=== PATIENT | female | born 1950 | race Caucasian/White ===

== ENCOUNTER → 2017-09-13 | Outpatient (CLI) | payer BC ==
--- NOTE | 2017-09-13 16:31 | PCVCIMAG ---
APPROVED REPORT Study performed: 09/13/2017 14:58:34 EXAM: Comprehensive 2D, Doppler, and color-flow Echocardiogram Patient Location: Echo lab Status: routine BSA: 1.98 2D Dimensions LVEF(%): 75.40 (>50%) IVSd: 11.74 (7-11mm)LVOT Diam: 19.73 (18-24mm) LVDd: 37.39 mm PWd: 10.44 (7-11mm)Ascending Ao: 36.40 (22-36mm) LVDs: 21.14 (25-40mm) Left Atrium: 31.88 (27-40mm) Aortic Root: 32.90 mm LV Single Plane 4CH: 73.84 % LV Single Plane 2CH: 56.49 %O[place]ira's LVEF: 65.17 % Biplane EF: 67.2 % Volumes Left Atrial Volume (Systole) Single Plane 4CH: 35.05 mLSingle Plane 2CH: 52.04 mL LA ESV Index: 25.00 mL/m2 Aortic Valve AoV Peak Marlon.: 1.86 m/s AO Peak Gr.: 13.84 mmHgLVOT Max P.00 mmHg AO Mean Gr.: 7.56 mmHgLVOT Mean P.64 mmHg AO V2 Mean: 1.32 m/sLVOT Max V: 1.15 m/s AO V2 VTI: 39.34 cm MITCHELL (VTI): 2.13 [id number] V1 VTI: 27.40 cm MITCHELL Vmax: 1.89 cm2 Mitral Valve E/A Ratio: 0.9 MV Decel. Time: 278.71 ms MV E Max Marlon.: 0.74 m/s MV A Marlon.: 0.82 m/s MV PHT: 80.83 ms IVRT: 124.57 ms TDI E/Lateral E': 12.33E/Medial E': 8.22 Medial E' Marlon.: 0.09 m/s Lateral E' Marlon.: 0.06 m/s Pulmonary Vein P Vein S: 0.67 m/sP Vein A: 0.29 m/s P Vein D: 0.41 m/sP Vein A Dur.: 90.0 msec P Vein S/D Ratio: 1.63 Tricuspid Valve TR Peak Marlon.: 2.41 m/s TR Peak Gr.: 23.30 mmHg Left Ventricle The left ventricle is normal size. There is normal LV segmental wall motion. There is normal left ventricular wall thickness. Left ventricular systolic function is normal. The left ventricular ejection fraction is within the normal range. LVEF is 65%. The left ventricular diastolic function is normal. Right Ventricle The right ventricle is normal size. The right ventricular systolic function is normal. Atria The left atrium size is normal. The right atrium size is normal. Aortic Valve Aortic valve is probably trileaflet. Aortic valve leaflets are mildly thickened. No aortic regurgitation is present. There minimal aortic valvular stenosis. Peak gradient is 14mmhg. Mean gradient of 8mmhg. Mitral Valve The mitral valve is normal in structure. There is no mitral valve regurgitation noted. No evidence of mitral valve stenosis. Tricuspid Valve The tricuspid valve is normal in structure. Trace tricuspid regurgitation. Pulmonary artery pressure is 31mmhg. Pulmonic Valve The pulmonary valve is normal in structure. There is no pulmonic valvular regurgitation. Great Vessels The aortic root is normal in size. IVC is normal in size and collapses with >50% inspiration Pericardium There is no pericardial effusion. <Conclusion> The left ventricle is normal size. LVEF is 65%. The left ventricular diastolic function is normal. The right ventricle is normal size. The left atrium size is normal. Aortic valve is probably trileaflet. Aortic valve leaflets are mildly thickened. There minimal aortic valvular stenosis. Peak gradient is 14mmhg. Mean gradient of 8mmhg. There is no mitral valve regurgitation noted. Trace tricuspid regurgitation. Pulmonary artery pressure is 31mmhg. There is no pericardial effusion.
== END | disposition home or self-care (01) ==
LOC: PCVCIMAG 16:40
PROVIDERS: ATTEND Internal Medicine Cardiovascular Disease
DX: I35.0 Nonrheumatic aortic (valve) stenosis (principal); E11.9 Type 2 diabetes mellitus without complications; I48.91 Unspecified atrial fibrillation; I10 Essential (primary) hypertension; R94.31 Abnormal electrocardiogram [ECG] [EKG]; E78.00 Pure hypercholesterolemia, unspecified; Z87.891 Personal history of nicotine dependence; Z79.899 Other long term (current) drug therapy
CPT/HCPCS: 93005; 93306; G0463

== ENCOUNTER → 2019-07-24 | Outpatient (CLI) | payer BC ==
--- NOTE | 2019-07-25 10:44 | PCVCIMAG ---
APPROVED REPORT Study performed: 07/24/2019 09:41:50 Exam: Stress Echocardiogram Indication: elevated coronary calcium score, a fib, htn, hlp Patient Location: Echo lab Stress Nurse: Kelsea Massey RN Status: routine Ht: 5 ft 9 in HR: 72 bpm BP: 132/92 mmHg Rhythm: NSR Procedure The patient underwent an Exercise Stress Test using the Sean Protocol. Blood pressure, heart rate, and EKG were monitored. An Echocardiogram was performed by echo technician in four stages in quad fashion. At peak stress, four selected images were obtained and placed side by side with resting images for comparison. Stress Test Details Stress Test: Exercise stress testing was performed using a Sean protocol. HR Resting HR: 72 bpmMax Heart Rate (APMHR): 153 bpm Max HR Achieved: 155 bpmTarget HR (85% APMHR): 130 bpm % of APMHR: 101 Recovery HR: 80 bpm HR response to stress: Normal HR response to stress BP Resting BP: 132/92 mmHg Max BP: 164/100 mmHg Recovery BP: 150/90 mmHg BP response to stress: Normal blood pressure response to stress. ECG Resting ECG: Sinus Rhythm Stress ECG: Sinus Rhythm ST Change: Normal Arrhythmia: Atrial fibrillation, frequent PACs and occasional PVC Recovery ECG: Sinus Rhythm Recovery ST Change: Normal Recovery Arrhythmia: atrial fibrillation that resolved to NSR at 3 mins, frequent PVCs and PACs Clinical Reason for Termination: Maximal effort Stress Symptoms: Dyspnea Exercise duration: 9 min 17 sec Highest Stage Achieved: Stage 4: 4.2 mph at 16% grade. Exercise capacity: 10.9 METs Overall Exercise Capacity for Age: Normal Scale: Active Angina Score: None Pre-Stress Echo The resting Echocardiogram showed normal left ventricular contractility with an estimated Ejection Fraction of about >55%. Normal wall motion in all segments on baseline images. Post-Stress Echo The stress Echocardiogram showed normal left ventricular contractility with an estimated Ejection Fraction of about 65%. Normal augmentation of wall motion in all segments on post stress images. Clinical No clinical or ECG evidence for ischemia. Atrial fibrillation. Conclusion Clinical Response: Non-ischemic Exercise Capacity: Average Stress ECG Response: Non-ischemic Stress Echo Images: Non-ischemic The left ventricle is normal in size and wall thickness in both the rest and stress images. Mild-moderate mitral regurgitation. Normal pulmonic valve. Mild tricupsid regurgitation with PAP of 36 mmHg. Aortic sclerosis, no stenosis with MITCHELL 2.0 cm2 and trace aortic insufficiency. Other Information Study Quality: Adequate <Conclusion> The left ventricle is normal in size and wall thickness in both the rest and stress images. Mild-moderate mitral regurgitation. Normal pulmonic valve. Mild tricupsid regurgitation with PAP of 36 mmHg. Aortic sclerosis, no stenosis with MITCHELL 2.0 cm2 and trace aortic insufficiency.
== END | disposition home or self-care (01) ==
LOC: PCVCIMAG 09:52
PROVIDERS: ATTEND Internal Medicine Cardiovascular Disease
DX: I08.0 Rheumatic disorders of both mitral and aortic valves (principal); R93.1 Abnormal findings on diagnostic imaging of heart and coronary circulation; I48.91 Unspecified atrial fibrillation; I10 Essential (primary) hypertension; E78.5 Hyperlipidemia, unspecified
CPT/HCPCS: 93325; 93351